=== PATIENT | male | born 2000 | race Caucasian/White ===

== ENCOUNTER 2018-07-09 08:56 | Inpatient (IN) ==
--- NOTE | 2018-07-08 15:53 | Anesthesiology Consultation ---
Date of Service July 08, 2018 Assessment & Plan (1) Encounter for pre-operative examination: Chart Review Chart Review: Acceptable Risk for Surgery History Surgery Operation Date: 07/09/18 12:00 Proposed Procedures p Left Tibial Plateau Fracture Open Reduction Internal Fixation(Left) - Abilio Stephen MD s Left Knee Assited Arthroscopic Allograft Bone Grafting(Left) - Abilio Stephen MD Height/Weight Height: 5 ft 10 in Weight: 74.843 kg Allergies Allergy/AdvReac Type Severity Reaction Status Date / Time No Known Allergies Allergy Verified 07/08/18 13:37 Medications Home Medications Medication Instructions Recorded Confirmed Last Taken acetaminophen [Tylenol Extra 2 tab PO Q6H PRN 07/08/18 07/08/18 Unknown Strength] Past Medical History Medical History No significant medical problems Past Surgical History Surgical History History of mandibular surgery UPPER JAW SURGERY History of tooth extraction Social History Smoking Status: Never smoker Do You Dip or Chew Tobacco: No Hx Alcohol Use: Yes Alcohol type: beer alcohol intake frequency: a few times a month Hx Substance Use: No substance use type: does not use
[2018-07-09] MEDS ORDERED: ROPIVACAINE 0.5% 5 MG/ML 30 ML VIAL ONE (10:32)
[2018-07-09] MEDS ORDERED: EpINEphrine HCL INJ 1 MG/ML 1ML SYRINGE ONE (10:33)
[2018-07-09] MEDS ORDERED: LIDOCAINE/EPINE 2% 1:100,000 20ML ONE (10:34)
[2018-07-09] MEDS ORDERED: CEFAZOLIN 2,000 MG/15 ML IV PUSH IV ONE (11:01)
[2018-07-09] MEDS ORDERED: PHENYLEPHRINE 100MCG/ML 5ML SYR IV PRN (11:04)
[2018-07-09] MEDS ORDERED: HYDROmorphone INJ 1 MG/ML SYRINGE IV PRN (11:04)
[2018-07-09] MEDS ORDERED: LABETALOL HCL IV 5 MG/ML 20ML IV PRN (11:04)
[2018-07-09] MEDS ORDERED: ONDANSETRON INJ 2 MG/ML 2 ML VIAL IV PRN ×4 (11:04→17:09)
[2018-07-09] MEDS ORDERED: MEPERIDINE HCL 25 MG/ML CARP IV PRN (11:04)
[2018-07-09] MEDS ORDERED: ATROPINE SULFATE 0.1 MG/ML 10ML SYR IV PRN (11:04)
[2018-07-09] MEDS ORDERED: ePHEDrine sulfate 50 MG/ML AMP IV PRN (11:04)
[2018-07-09] MEDS ORDERED: LACTATED RINGER'S 1,000 ML IV SCH (11:30)
[2018-07-09] MEDS ORDERED: CEFAZOLIN 2000MG 2,000 MG/15 ML SYR IV SCH ×2 (11:30→15:00)
[2018-07-09] MEDS ORDERED: MIDAZOLAM HCL 1 MG/ML 2ML VIAL ONE (11:31)
[2018-07-09] MEDS ORDERED: DEXAMETHASONE SOD INJ 4 MG/ML VIAL ONE (11:31)
[2018-07-09] MEDS ORDERED: ONDANSETRON INJ 2 MG/ML 2 ML VIAL ONE ×2 (11:31→12:14)
[2018-07-09] MEDS ORDERED: LIDOCAINE HCL 2% 2 ML VIAL/AMP(20MG/ML) INFIL ONE (11:31)
[2018-07-09] MEDS ORDERED: fentaNYL citrate 100 MCG/2 ML VIAL ONE ×3 (11:31→13:01)
[2018-07-09] MEDS ORDERED: PROPOFOL IV EMULSION 10 MG/ML 20 ML VIAL IV ONE (11:31)
[2018-07-09] MEDS ORDERED: SCOPOLAMINE 1.5 MG TDSY TD ONE (11:33)
[2018-07-09] MEDS ORDERED: SCOPOLAMINE 1.5 MG TDSY ONE (11:34)
--- NOTE | 2018-07-09 11:45 | History & Physical Bridge Note ---
Date of Service July 09, 2018 History & Physical Bridge Note I have examined the patient, reviewed the History & Physical and in the interval since the performance of the History & Physical I have noted the following changes of clinical significance: no changes noted
[2018-07-09] MEDS ORDERED: BUPIVACAINE/EPINEPHRINE 0.5% MPF 1:200,000 30 ML VIAL ONE (12:14)
[2018-07-09] MEDS ORDERED: TRANEXAMIC ACID 1,000 MG in 0.9 % SODIUM CHLORIDE 100 ML IV ONE ×2 (13:30→14:15)
[2018-07-09] MEDS ORDERED: PHENYLEPHRINE HCL 10 MG/ML VIAL ONE (13:31)
[2018-07-09 14:30] LABS: Hematocrit (blood only) 28.4 % (42-52); Hemoglobin 9.6 g/dL (14.0-18.0)
--- NOTE | 2018-07-09 14:48 | Post Operative Brief Note ---
Immediate Post Op Note v1 Date of Surgery July 09, 2018 Pre & Post Diagnosis Operation Date: 07/09/18 12:00 Pre-Op Diagnosis: Left Tibial Plateau Fracture Post-Op Diagnosis: Left Tibial Plateau Fracture Procedure Operation Date: 07/09/18 12:00 Actual Procedures p Left Tibial Plateau Fracture Open Reduction Internal Fixation with Bone Grafting(Left) - Abilio Stephen MD Surgeon Abilio Stephen MD Lead Press Operator YESY Cosby Estimated Blood Loss 1,000 Findings Consistent with Post-Op Diagnosis Fluids 3000 Anesthesia Type General Complications none Disposition Accompanied Patient To Recovery: No Disposition: Recovery Room
[2018-07-09] MEDS ORDERED: ePHEDrine sulfate 50 MG/ML SYR ONE (14:49)
[2018-07-09] MEDS ORDERED: NALOXONE HCL 0.4 MG/1 ML VIAL/CARP IV PRN (14:59)
[2018-07-09] MEDS ORDERED: METOCLOPRAMIDE HCL INJ 5 MG/ML 2 ML VIAL IV PRN ×3 (14:59→17:09)
[2018-07-09] MEDS ORDERED: BISACODYL 10 MG SUPP PR PRN ×2 (14:59→17:09)
[2018-07-09] MEDS ORDERED: MAGNESIUM HYDROXIDE SUSP 30 ML UDC PO PRN ×2 (14:59→17:09)
[2018-07-09] MEDS ORDERED: ALUMINUM/MAGNESIUM SUSP 30 ML UDC PO PRN ×2 (14:59→17:09)
[2018-07-09] MEDS ORDERED: DiphenhydrAMINE HCL 50 MG/ML VIAL IV PRN (14:59)
--- NOTE | 2018-07-09 14:59 | Operative Report ---
Post Operative Report Pre & Post Diagnosis Operation Date: 07/09/18 12:00 Pre-Op Diagnosis: Left Tibial Plateau Fracture Post-Op Diagnosis: Left Tibial Plateau Fracture Procedure Operation Date: 07/09/18 12:00 Actual Procedures p Left Tibial Plateau Fracture Open Reduction Internal Fixation with Bone Grafting(Left) - Abilio Stephen MD Surgeon Abilio Stephen MD Quality Auditor YESY Cosby Estimated Blood Loss 1,000 Findings Consistent with Post-Op Diagnosis Specimens none Complications none Disposition Accompanied Patient To Recovery: Yes Disposition: Recovery Room Description of Procedure I was present during the entire case assisting with wound closure, dressing and brace application. Please see Dr. Stephen procedure note for specifics of the case. I attest to the content of the Intraoperative Record and any orders documented therein. Any exceptions are noted below.
[2018-07-09] MEDS ORDERED: SODIUM CHLORIDE 0.9% 1000ML 1,000 ML IV SCH (15:00)
[2018-07-09] MEDS ORDERED: ACETAMINOPHEN 1,000 MG/100 ML VIAL IV SCH (15:00)
[2018-07-09] MEDS ORDERED: ACETAMINOPHEN 1000 MG/100 ML IV IV ONE (15:27)
[2018-07-09] MEDS: fentaNYL citrate 100 MCG/2 ML VIAL IV PRN ×4 (15:32→15:54)
--- NOTE | 2018-07-09 15:49 | Anesthesiology Progress Note ---
Date of Service July 09, 2018 Anesthesia Post Procedure Vital Signs Vital Signs: Temp Pulse Resp BP Pulse Ox 07/09/18 15:06 36.2 C L 87 16 144/86 H 100 07/09/18 10:53 36.6 C 79 16 142/72 H 97 Pain Intensity Left Leg: Pain Intensity: 5 Notes Mental Status: alert / awake / arousable Patient Amnestic to Procedure: Yes Nausea / Vomiting: adequately controlled Pain: adequately controlled and improving with treatment Airway Patency, RR, SpO2: stable & adequate BP & HR: stable & adequate Hydration State: stable & adequate Anesthetic Complications: no major complications apparent, see Notes below and Pt Satisfied with anesthetic care Notes: The patient underwent a L tibial plateau fracture repair under general anesthesia. He had greater than expected bleeding during the procedure leading to over one liter of blood loss. Near the end of the procedure, his hgb level was checked and found to be 9.6. Possible reasons for the increased blood loss include the patient taking aspirin on his flight home last week, the patient drinking alcohol on spring last week, and no tourniquet being used due to a concern by the surgeon of it increasing the risk of compartment syndrome. The patient was given over 3 liters of crystalloid during the procedure and a total of 2 grams of TXA. The patient had a urinary catheter placed and removed at the end of the procedure that drained 300 ml of urine. The patient required some pressers during the procedure but tolerated anesthesia well and the LMA was removed uneventfully in the OR. The patient's vital signs have been stable in PACU and his pain is being treated. His is awake and stable. Due to concerns for possible ongoing blood loss, Dr. Stephen would like to admit the patient to the hospital. He will be transported by EMS with full monitors to the third floor of the hospital as a direct admit of Dr. Stephen. Report was given to Isamar, who will be his nurse on the floor. A hgb level will be checked at [address] Stephen. I spoke to Dr. Mcmahan who is assistant golf professional tonight to follow up with the hgb level as well. The patient and his parents agree with the plan to have him admitted overnight to the hospital.
[2018-07-09] MEDS ORDERED: OXYCODONE/ACETAMINOPHEN 5mg/325mg TAB PO PRN ×2 (15:56→17:09)
[2018-07-09] MEDS ORDERED: CHECK SCOPOLAMINE PATCH PLACEMENT SCH (16:00)
[2018-07-09] MEDS: OXYCODONE HCL IR 5 MG TAB (IMMEDIATE RELEASE) PO PRN ×2 (17:44→23:35)
[2018-07-09] MEDS: ACETAMINOPHEN 1,000 MG/100 ML VIAL IV SCH (18:27)
[2018-07-09] MEDS: SODIUM CHLORIDE 0.9% 1000ML 1,000 ML IV SCH (18:52)
[2018-07-09] MEDS: HYDROmorphone INJ 1 MG/ML SYRINGE IV PRN (20:17)
[2018-07-09] MEDS: CEFAZOLIN 2000MG 2,000 MG/15 ML SYR IV SCH (20:18)
[2018-07-09] MEDS ORDERED: DOCUSATE SODIUM 100 MG CAP PO SCH (21:00)
[2018-07-09] MEDS ORDERED: SENNA 8.6 MG TAB PO SCH ×2 (21:00)
[2018-07-09 21:21] LABS: Hematocrit (blood only) 27.4 % (42-52); Hemoglobin 9.3 g/dL (14.0-18.0); Mean Corpuscular Hgb Conc 33.9 g/dL (32-36); Mean Corpuscular Volume 88.1 fL (80-100); Mean Platelet Volume 10.2 fL (7.4-10.4); Platelet Count 295 K/uL (130-400); RDW Coefficient of Variation 12.6 % (11.5-14.5); RDW Standard Deviation 40.2 fL (36.4-46.3); Red Blood Count 3.11 M/uL (4.7-6.1); White Blood Count 8.63 K/uL (4.8-10.8)
[2018-07-09 21:38] LABS: Albumin Level 2.8 gm/dl (3.4-5.0); BUN Creatinine Ratio 11.4 (10-20); Calcium 8.1 mg/dl (8.5-10.1); Creatinine Clr Calc Pharmacy 129.4 ml/min; Est GFR (African American) 134.7; Est GFR (Non-African American) 116.2; Potassium 4.3 mmol/L (3.5-5.1)
[2018-07-09 21:40] LABS: Albumin Globulin Ratio 0.9 (0.9-2); Bilirubin,Total 0.5 mg/dl (0.2-1); Globulin 3.1 gm/dl (2.5-4.0); Total Protein 5.9 gm/dl (6.4-8.2)
[2018-07-09] MEDS: DOCUSATE SODIUM 100 MG CAP PO SCH (21:48)
--- NOTE | 2018-07-10 01:43 | Operative Report ---
DATE OF OPERATION: 07/09/2018 PREOPERATIVE DIAGNOSIS: Left Schatzker II tibial plateau fracture. POSTOPERATIVE DIAGNOSIS: Same. OPERATION PERFORMED: Open reduction internal fixation, left Schatzker II tibial plateau fracture with cancellous bone grafting. SURGEON: Abilio Stephen MD ETHYLENE OXIDE PANELBOARD OPERATOR:. Toni Cosby. ESTIMATED BLOOD LOSS: 1000 mL. INTRAVENOUS FLUIDS: 3000 mL crystalloid. SPECIMENS: None. COMPLICATIONS: None. IMPLANTS: One Synthes 6-hole lateral locking plate with 4 locking screws and the remaining 5 screws nonlocking screws. INDICATIONS: Marty is a 18-year-old male who fell skiing in [place] on 06/30/2018. He presented to my clinic 2 days ago already 1 week out from his injury. He had his knee drained in [place] and then was placed on aspirin for DVT prophylaxis, which he took up until Friday before he flew back on Friday. I obtained an MRI, which was performed yesterday and it demonstrated a comminuted split-depression lateral tibial plateau with depression of the comminuted fragments up to 1 cm. I had a long discussion with him about the risks and benefits of surgery, alternatives to surgery, and expected outcomes. After reviewing all these, he elected to proceed with surgery. All questions were answered. Informed consent was signed. OPERATIVE FINDINGS: Although all visible vessels were coagulated with electocautery, the patient was somewhat oozy during surgery, mostly from the fracture site. This is suspected to be from his recent aspirin use. Once his fracture was reduced and fixed, the surgical field dried up. His articular depression was tamped back up toward the normal joint line, the void grafted with cancellous chips, and the fracture was stabilized with a Synthes lateral tibial locking plate and screws. DESCRIPTION OF OPERATION: The patient was identified in the preoperative holding area where his surgical site was marked. He was brought back to the main operating room where he was placed on the operating room table and general anesthesia was administered. A bump was placed underneath the operative hip. All bony prominences were padded. Perioperative antibiotics were administered. The leg was prepped and draped in a normal sterile fashion. Prior to incision, a multidisciplinary timeout was called. All in the room were in agreement. We began by bringing in C-arm fluoroscopy to evaluate the fracture. We were able to adequately visualize the depressed articular fragments with fluoroscopy, better on the lateral view than the AP view. We then made an L-shaped incision with the short part of the L measuring approximately 4 cm, parallel with the joint line along the proximal lateral tibial plateau and the long part of the L approximately 7 cm just lateral to the anterior tibial crest. We dissected down through subcutaneous tissues to the level of the fascia. The anterior compartment musculature was then dissected subperiosteally off of the tibia. The fracture site was exposed. Hemostasis of any bleeders was achieved. However, he had some bleeding through the fracture site thought to be related to his recent aspirin use. There was a medium sized fragment at Gerdy's tubercle, and a larged fragment more posterior to this that was hinged open and displaced posterolaterally. A curved hemostat as well as a curved bone tamp were then inserted through the fracture site laterally, and used to elevate up the depressed bone fragments under fluoroscopic guidance. A good reduction was obtained, with one very small fragment slightly over-reduced above the tibial plateau which we tried to depress back down with a valgus force to the knee, with some success, although it was still slightly elevated, but felt to be acceptable. Once this was complete, 15 mL of cancellous bone chips were opened up and were packed into the void at the fracture site and compacted with a bone tamp. I was then able to hinge the two cortical 2 pieces, one that was attached to the Gerdy's tubercle and the second piece that was more posteriorly back down over the top of the bone graft for a nice anatomic reduction. A small stab incision was made medially under fluoroscopic guidance to apply a periarticular reduction clamp, which was used to further reduce the fracture. We then brought up a 6-hole Synthes lateral tibial plateau locking plate. This was placed on the lateral tibial plateau under fluoroscopic guidance and then pinned into position using K-wire. Once our plate was optimally positioned, a single 3.5 mm cortical screw was placed through the oblong compression hole in the plate distally. We then placed 2 conical compression screws into the locking plate proximally using the most anterior and the most posterior holes in order to suck the plate down on to the bone. We had excellent bite on each of these. We then placed the middle 2 rafting screws using locking screws. Next, the 2 remaining distal nonlocking holes were filled with 3.5 mm cortical screws in bicortical fashion. Three oblique locking screws were then placed to further buttress the lateral tibial plateau. Once this was complete, our final fluoroscopic images were obtained. We were happy with our overall reduction. There was a slight step-off on the AP view which we had previously elected to accept. The wound was then irrigated with copious amounts of normal saline. Two small strips of Surgicel were packed adjacent to the fracture site to assist in postoperative hemostasis. The fascial incisions were closed using 0 Vicryl sutures. The deep dermis was closed using 2-0 Vicryl sutures. Skin was closed using honorio. A 20 mL of 0.5% Marcaine with epinephrine was injected in subcutaneous tissues for postoperative pain control. He was then placed into a sterile dressing with Xeroform, 4 x 4's, ABD, cotton wrap, and an Zach wrap going from the toes up to the hip. He was placed in a hinged knee brace locked in full extension. A straight catheterization was then performed while the patient was still asleep to ensure that his bladder was not over distended, which it was not. The patient was then awoken from anesthesia and transferred to the recovery room in stable condition. POSTOPERATIVE COURSE: The patient will be admitted to the hospital overnight for pain control and monitoring. Of note, his hemoglobin was checked intraoperatively and was in the high 9's. We will check another H and H this evening to ensure he doesn't have a significant drop. He will be on Xarelto for DVT prophylaxis starting tomorrow. He will elevate his leg and start early range of motion exercises tomorrow. I attest to the content of the Intraoperative Record and any orders documented therein. Any exceptions are noted below. CLINT
[2018-07-10] MEDS: ACETAMINOPHEN 1,000 MG/100 ML VIAL IV SCH ×2 (01:44→10:28)
[2018-07-10] MEDS: HYDROmorphone INJ 1 MG/ML SYRINGE IV PRN ×2 (01:44→07:41)
[2018-07-10] MEDS: SODIUM CHLORIDE 0.9% 1000ML 1,000 ML IV SCH (04:36)
[2018-07-10] MEDS: CEFAZOLIN 2000MG 2,000 MG/15 ML SYR IV SCH (04:43)
[2018-07-10] MEDS: OXYCODONE HCL IR 5 MG TAB (IMMEDIATE RELEASE) PO PRN ×3 (04:46→17:24)
[2018-07-10 07:02] LABS: Hematocrit (blood only) 24.1 % (42-52); Hemoglobin 8.2 g/dL (14.0-18.0); Mean Corpuscular Volume 86.7 fL (80-100); Mean Platelet Volume 9.9 fL (7.4-10.4); Platelet Count 276 K/uL (130-400); RDW Coefficient of Variation 12.6 % (11.5-14.5); RDW Standard Deviation 40.3 fL (36.4-46.3); Red Blood Count 2.78 M/uL (4.7-6.1); White Blood Count 12.19 K/uL (4.8-10.8)
[2018-07-10 07:30] LABS: BUN Creatinine Ratio 9.8 (10-20); Calcium 7.5 mg/dl (8.5-10.1); Est GFR (African American) 149.8; Est GFR (Non-African American) 129.3; Potassium 3.8 mmol/L (3.5-5.1)
[2018-07-10] MEDS: DOCUSATE SODIUM 100 MG CAP PO SCH (07:46)
--- NOTE | 2018-07-10 07:53 | Anesthesiology Progress Note ---
Date of Service July 10, 2018 Anesthesia Post Procedure Vital Signs Vital Signs: Temp Pulse Pulse Pulse Pulse Resp BP 07/10/18 07:08 36.7 C 69 14 07/10/18 03:35 36.7 C 83 16 07/09/18 22:57 37.0 C 62 16 07/09/18 19:51 36.8 C 65 16 07/09/18 19:06 62 16 07/09/18 17:57 61 16 07/09/18 17:23 36.7 C 16 07/09/18 16:50 36.7 C 90 16 07/09/18 16:26 66 16 07/09/18 16:20 64 17 138/71 07/09/18 16:15 72 22 142/70 H 07/09/18 16:13 37.0 C 86 18 07/09/18 16:11 87 17 07/09/18 16:10 64 14 136/70 07/09/18 16:06 63 4 L 07/09/18 16:05 62 12 135/72 07/09/18 16:01 72 14 07/09/18 16:00 70 16 137/69 07/09/18 15:59 36.9 C 75 16 07/09/18 15:55 76 13 134/67 07/09/18 15:51 81 17 07/09/18 15:50 64 16 132/70 07/09/18 15:46 61 19 07/09/18 15:45 60 9 L 134/71 07/09/18 15:41 72 19 07/09/18 15:40 67 18 135/69 07/09/18 15:35 70 13 141/69 H 07/09/18 15:31 73 14 07/09/18 15:30 78 12 147/81 H 07/09/18 15:25 76 14 139/73 07/09/18 15:21 111 H 14 07/09/18 15:20 107 H 13 117/91 07/09/18 15:15 82 14 145/81 H 07/09/18 15:11 87 14 07/09/18 15:10 77 18 133/76 07/09/18 15:06 36.2 C L 76 87 20 144/86 H 07/09/18 15:05 90 13 07/09/18 10:53 36.6 C 79 16 BP BP Pulse Ox 07/10/18 07:08 118/69 98 07/10/18 03:35 108/68 98 07/09/18 22:57 116/72 100 07/09/18 19:51 120/73 99 07/09/18 19:06 116/72 96 07/09/18 17:57 112/75 100 07/09/18 17:23 110/72 99 07/09/18 16:50 122/72 100 07/09/18 16:26 135/72 98 07/09/18 16:20 99 07/09/18 16:15 99 07/09/18 16:13 136/70 100 07/09/18 16:11 100 07/09/18 16:10 100 07/09/18 16:06 100 07/09/18 16:05 100 07/09/18 16:01 100 07/09/18 16:00 100 07/09/18 15:59 134/67 07/09/18 15:55 100 07/09/18 15:51 100 07/09/18 15:50 100 07/09/18 15:46 100 07/09/18 15:45 100 07/09/18 15:41 100 07/09/18 15:40 100 07/09/18 15:35 100 07/09/18 15:31 100 07/09/18 15:30 99 07/09/18 15:25 100 07/09/18 15:21 100 07/09/18 15:20 100 07/09/18 15:15 100 07/09/18 15:11 100 07/09/18 15:10 100 07/09/18 15:06 144/86 H 100 07/09/18 15:05 100 07/09/18 10:53 142/72 H 97 Pain Intensity Left Leg: Pain Intensity: 6 Notes Mental Status: alert / awake / arousable Patient Amnestic to Procedure: Yes Nausea / Vomiting: adequately controlled Pain: adequately controlled and improving with treatment Airway Patency, RR, SpO2: stable & adequate BP & HR: stable & adequate Hydration State: stable & adequate Anesthetic Complications: no major complications apparent and Pt Satisfied with anesthetic care Notes: The patient is POD#1 s/p tibial plateau fracture repair. His hgb was 9.3 last night and 8.[address] Stephen came by to see the patient this morning and was not overly concerned with the hgb level according to the patient and his nurse. The patient has surgical site pain, but otherwise feels fine. He has no chest pain, sob, or lightheadedness. His vital signs have been stable. On exam his heart is RRR and lungs are clear. His L leg is bandaged and in a brace. The patient was receiving a dose of pain medicine from his nurse during the exam. The patient's disposition will be according to the orthopedic service. The orthopedic PA will be by to see the patient later today for possible discharge according to what Dr. Stephen told the patient and his nurse.
[2018-07-10] MEDS ORDERED: dexAMETHasone 4 MG TAB PO SCH ×2 (08:00)
[2018-07-10] MEDS ORDERED: MULTIVITAMIN TAB PO SCH ×2 (09:00)
[2018-07-10] MEDS ORDERED: RIVAROXABAN 10 MG TABLET PO SCH ×2 (09:00)
--- NOTE | 2018-07-10 09:30 | Orthopedic Progress Note ---
Date of Service July 10, 2018 Assessment & Plan (1) S/P ORIF (open reduction internal fixation) fracture: HgB dropped over night and is now 8.2 HcT also dropped and is 24.1 However transfusion is not necessary at this time PT/OT this AM Plan on discharge to home later today is able to control pain with PO med Ice with EZ wrap Non-weight bearing on Left lower extremity with brace locked in extension and with ambulatory aid Dressing changed and may shower. We will change dressing and remove honorio at 2 wk post op f/u that has already been scheduled. Xarelto 10 mg and MOLLY stockings for DVT prophylaxis Will do knee x-rays at f/u appt With any questions contact our office at Subjective Day 1 s/p Left tibial plateau [place] [facility] [place] Pt was transferred to [facility] due to acute blood loss and for pain control following the procedure. At this point he is doing well. States that pain is well controlled with PO and IV meds. Denies CP, SOB, Nausea, Vomiting, lethargy, fever, chills or sweats. Will be discharged home later today. Physical Exam Vital Signs (Past 24 Hours): Last Vital Signs Temp 36.7 C 07/10/18 08:09 Pulse 65 07/10/18 08:09 Resp 14 07/10/18 08:09 BP 122/72 07/10/18 08:09 Pulse Ox 98 07/10/18 08:09 Physical Exam: Left knee: incision site closed completely with honorio intact. No drainage/discharge noted. Numbness to light touch following the tibialis anterior nerve distribution distally to dorsum of foot. Able to dorsi/plantar flex. Good quad to but has some difficulty performing SLRT. Knee active ROM from 0-65 degrees. Moderate edema and notable ecchymosis to posterior knee and proximal lower leg. Periph pulses easily palpable. Cap refill < 2 seconds. Results & Data Laboratory Results Laboratory Results - last 24 hr 07/09/18 07/09/18 07/09/18 14:15 20:13 20:13 WBC 8.63 RBC 3.11 L Hgb 9.6 L 9.3 L Hct 28.4 L 27.4 L MCV 88.1 MCH 29.9 MCHC 33.9 RDW Std Deviation 40.2 RDW Coeff of Kamila 12.6 Plt Count 295 MPV 10.2 Sodium 138 Potassium 4.3 Chloride 107 Carbon Dioxide 26 Anion Gap 5.0 BUN 11 Creatinine 0.94 Est Cr Clr Drug Dosing 129.4 Est GFR ( Amer) 134.7 Est GFR (Non-Af Amer) 116.2 BUN/Creatinine Ratio 11.4 Glucose 152 H Calcium 8.1 L Total Bilirubin 0.5 AST 19 ALT 27 Alkaline Phosphatase 65 Total Protein 5.9 L Albumin 2.8 L Globulin 3.1 Albumin/Globulin Ratio 0.9 07/10/18 07/10/18 06:36 06:36 WBC 12.19 H RBC 2.78 L Hgb 8.2 L Hct 24.1 L MCV 86.7 MCH 29.5 MCHC 34.0 RDW Std Deviation 40.3 RDW Coeff of Kamila 12.6 Plt Count 276 MPV 9.9 Sodium 138 Potassium 3.8 Chloride 107 Carbon Dioxide 25 Anion Gap 6.0 BUN 8 Creatinine 0.79 Est Cr Clr Drug Dosing 154.0 Est GFR ( Amer) 149.8 Est GFR (Non-Af Amer) 129.3 BUN/Creatinine Ratio 9.8 L Glucose 113 H Calcium 7.5 L Total Bilirubin AST ALT Alkaline Phosphatase Total Protein Albumin Globulin Albumin/Globulin Ratio
--- NOTE | 2018-07-10 09:33 | Discharge Summary ---
Date of Service July 10, 2018 Admission HPI Per Admitting Provider This 18 yo male was skiing at [facility] in [place] over spring and attempted to go over a mogul while skiing downhill, twisted his foot and felt sudden sensation of excruciating pain in the anterior aspect of his left knee. The patient was seen in the Emergency Department while in [place], had x-rays performed, along with a joint aspiration and given a knee brace and crutches to use. They advised him to f/u with an orthopedist when he returned to [place]. The patient states that his pain has been well controlled with PO Percocet and that he has been using Aspirin 81 mg for DVT prophylaxis. Admission Exam (Per Admitting) Constitutional The patient has notable ecchymosis over the anterior surface of the left knee and lower leg. Otherwise, that are no open skin lesions or discharge appreciated. Eyes: Pupils are equal and reactive to light and accommodating. Extraoccular movements are intact. Throat: posterior oropharynx is clear with absence of edema, erythema or exudate. Cardiovascular Exam: Regular rate and rhythm with no murmur or gallops appreciated. Lungs: auscultation of lung thrasher reveal clear breath sounds with no wheezing, rales or rhonchi. Abdomen: nonobese, nondistended, nontender to palpation with normoractive bowel sounds throughout. Extremities: Left knee: significant edema over the anterior surface of the knee with associated ecchymosis tracking to the mid portion of the lower leg circumferentially. ROM was not tested due to fracture. 2+ effusion over anterior surface. No varus/valgus laxity. Neg A/P drawer sign. Neg russell test. Patella freely mobile. Calf is slightly firm but nontender to palpation. He is neurovascularly intact in left lower extremity. Specialty Data Orthopedic Day 1 s/p ORIF of left tibial plateau fracture Discharge Data Consultations 07/09/18 15:00 Consult Case Management - Discharge Planning Routine Procedures Performed Operation Date: 07/09/18 12:00 Actual Procedures p Left Tibial Plateau Fracture Open Reduction Internal Fixation with Bone Grafting(Left) - Abilio Stephen MD Hospital Course (1) S/P ORIF (open reduction internal fixation) fracture: HgB dropped over night and is now 8.2 HcT also dropped and is 24.1 However transfusion is not necessary at this time PT/OT this AM Plan on discharge to home later today is able to control pain with PO med Ice with EZ wrap Non-weight bearing on Left lower extremity with brace locked in extension and with ambulatory aid Dressing changed and may shower. We will change dressing and remove honorio at 2 wk post op f/u that has already been scheduled. Xarelto 10 mg and MOLLY stockings for DVT prophylaxis Will do knee x-rays at f/u appt With any questions contact our office at Discharge Instructions Post-operative Instructions Dear Patient and Family/Friends, Before you are discharged from the hospital, it is important to know what to expect when you get home after surgery. To that end, we have created this sheet of discharge instructions which covers many commonly asked questions. Make sure you go through this sheet in its entirety with your nurse before you are dischar ged. Please note that we will go over the specifics of your surgery and recovery when you return for your first post-operative visit. Sincerely, Dr. Stephen Pain Expect to be in a fair amount of pain after surgery. Remember, our goal is not to eliminate your pain, but to make it tolerable. It is a good idea to stay ahead of your pain by taking the medications you were prescribed once you get home. Typically, the pain starts improving 3-7 days after surgery. You should start weaning off the narcotic pain medication (oxycodone, hydrocodone, hydromorphone, morphine) as soon as your pain improves. Please call our office if your pain is not adequately controlled. DVT prophylaxis You will be taking Xarelto 10 mg tabs daily for the next 21 days for prevention of blood clots. You will also be using MOLLY stocking for at least 20 hrs per day for the next 2 wks. Ice Ice your operative site at least 5 times a day for 15-30 minutes at a time. Make sure you have a thin cloth between the ice or cooling unit and your skin to prevent daniel bite. This is especially important if you received a nerve block. Continue icing your operative site for the first 5-7 days after surgery, then as needed. Diet/Nausea/Vomiting Start by drinking clear liquids and eating crackers. If you can tolerate this, then you may resume your normal diet. If you feel nauseated or vomit, take Zofran/ondansetron (if prescribed). Please call our office if you have intractable nausea or vomiting, or, if after hours, you may go to the Emergency Room for help. Constipation Constipation is a common side effect of narcotic pain medication. If you have not had a bowel movement within 2 days after surgery, we recommend purchasing an over the counter laxative such as Milk of Magnesia, Dulcolax, or Miralax from a local pharmacy, and taking it as instructed. Call our clinic if any questions. Slings and Braces If you were placed in a sling or brace, it must be worn at all times, including sleep. You may remove your sling or brace for physical therapy, home exercises, and showering. The length of time you will be in your brace and range of motion restrictions depends on what surgery you had; these details will be reviewed at your first post-operative appointment. Weight bearing and Range of Motion. Do not bear any weight through your operative extremity immediately after surgery. If you had upper extremity surgery, do not lift anything with that arm. If you are in a knee brace, keep it locked in place until your follow-up. We will discuss your weight bearing, range of motion, and lifting restrictions in detail at your first post-operative appointment. Physical therapy You will be given a prescription for physical therapy or occupational therapy at your first post-operative appointment. Typically, patients start therapy within 1 week of surgery Wound care and showering We will inspect your wound at your first post-operative visit, and may do a mili ssing change at that time. Most patients will be in a water-proof dressing that is removed 14 days after surgery. It is normal to see some dried blood on the dressing. Do not remove your dressing, paper strips or sutures yourself unless you are given permission. Showering is allowed the day after surgery. Do not scrub or remove any dressings. The wound should not be submerged underwater (i.e. in a bathtub or pool) until 4 weeks after surgery MOLLY stockings If you were given white stockings, these are to be worn at all times except to shower (on both legs) for the first 2 weeks after surgery. Driving You may not drive while taking narcotic pain medication or while in a cast, splint, sling or brace. You, the patient, need to make the final determination about when you are safe to drive, however, the earliest you may consider driving after surgery is below: Hand/Wrist/Elbow Surgery: 3 days Shoulder Surgery: 2 weeks Hip,/Knee/Ankle Surgery: 4 weeks Fracture repair: 6 weeks Return to Work Your return to work depends on what surgery was done and what type of work you do. Please bring any paperwork your employer needs completed to your first post-operative visit. Also, bring a description of your job duties, as this helps us to understand what risks you may face at work. Travel Avoid long distance travel (greater than 1 hour) in airplanes and cars for the first 6 weeks after surgery. If you must travel, you need to have a Doppler ultrasound done before you travel to rule out a blood clot in your legs. Follow-up You should have a follow-up appointment already scheduled 2 weeks after surgery. When to call the office: It is normal to have swelling and bruising in the limb that was operated on. This will improve with time. It is also normal to have fevers for the first 2 days after surgery. Reasons you should call your doctor include: Uncontrolled pain; Nausea, vomiting, or constipation that does not improve with medication; Fevers over 101.5, chills, sweats; Drainage or bleeding from the wound; Foul odor; Spreading areas of redness; Any other concerns
[2018-07-10 15:33] VITALS: BP 124/66; PULSE 80; TEMP 98.1; O2SAT 98
== END 2018-07-10 18:37 | disposition home or self-care (01) | DRG 493 ==
LOC: SURCTR 08:56 → 3E 15:00 → SURCTR 16:38